=== PATIENT | male | born 1970 | race Hispanic/Latino ===

== ENCOUNTER 2021-09-22 08:52 | Outpatient (CLI) | payer OTHER ==
[2021-09-22] MEDS ORDERED: Magnevist 469MG/ML 20 ML VIAL ONE ×2 (12:33)
== END 2021-09-22 08:53 | disposition home or self-care (01) ==
LOC: TBSIIMAG 08:52
PROVIDERS: ATTEND Neurological Surgery
DX: M54.12 Radiculopathy, cervical region (principal); M54.50 Low back pain, unspecified; G96.191 Perineural cyst
CPT/HCPCS: 72141; 72148; 72156; 72157; 72158; A9579